=== PATIENT | female | born 1985 | race Caucasian/White ===

== ENCOUNTER 2019-04-12 14:11 | Emergency (ER) | payer OTHER ==
[~2019-04-12] VITALS: Ht 165.1 cm; Wt 90.7 kg
--- NOTE | ~2019-04-12 | EKG ---
[place], [place] ELECTROCARDIOGRAM REPORT NAME: MATTY MENDOZA UNIT #: [id number] ROOM: DOCTOR: EPIPHANY DRAFT REPORT BIRTHDATE: [birth year] [facility] Test Date: 2019-04-12 Test Time: 15:10:48 Pat Name: MATTY MENDOZA Department: Room: Gender: F Food Beverage Attendant: SS RESP : 1985 Requested By: RAJ ANDERSON DNP Order Number: [id number] Reading MD: Katie Veronica Measurements Intervals [place] Rate: 92 P: 37 IN: 158 QRS: 32 QRSD: 89 T: 7 QT: 349 QTc: 432 Interpretive Statements Sinus rhythm Left atrial enlargement Baseline wander in lead(s) V5 Electronically Signed On 04-13-2019 7:42:14 PST by Katie Veronica CM:EKGRPT:ELECTROCARDIOGRAM REPORT [id number] RAJ ANDERSON DNP EPIPHANY DRAFT REPORT RAJ ANDERSON DNP
[~2019-04-12 14:11] MED LIST: BACTRIM DS 8001 TA1 PO; BIRTH CONTROL1 EACH PO; FLEXERIL10 MG PO; HYDR25T PO; KEFLEX500 MG PO; MOTRIN800 MG PO; NKHM; PERCOCET 325 MG1 TA2 PO; PERCOCET 325 MG1 TA5 PO; PERCOCET 325 MG1 TA6 PO; PHENERGAN25 M1 PO; PNV-DHA1 SGL PO; ULTRAM50 MG PO; VASOTEC5 MG PO; VICODIN 5/500 505 MG PO; ZITHROMAX Z PA250 MG PO
[2019-04-12 15:11] LABS: BASO # 0.1 10*3/uL (0.0-0.1); BASO % 0.4 % (0.0-1.0); EOS # 0.2 10*3/uL (0.0-0.4); EOS % 1.3 % (1.0-4.0); HEMATOCRIT 44.9 % (37.0-47.0); HEMOGLOBIN 14.2 g/dl (12.0-16.0); LYMPH # 1.9 10*3/uL (1.3-4.4); LYMPH % 13.5 % (27.0-41.0); MEAN CELL VOLUME 83.1 fl (81.0-99.0); MEAN CORPUSCULAR HGB 26.3 pg (27.0-31.0); MEAN CORPUSCULAR HGB CONC 31.6 g/dl (33.0-37.0); MEAN PLATELET VOLUME 10.8 fl (9.6-12.3); MONO # 0.7 10*3/uL (0.1-1.0); MONO % 4.9 % (3.0-9.0); NEUT # 11.1 10*3/uL (2.3-7.9); NEUT % 79.5 % (47.0-73.0); PLATELET COUNT AUTOMATED 280 10*3/uL (130-400); RED CELL DISTRI WIDTH 14.1 % (0-14.5)
[2019-04-12 15:23] LABS: ACT PARTIAL THROMBO TIME 25.6 SECONDS (20.0-32.1); INTERNATIONAL NORM RATIO 0.9 (2.0-3.5)
[2019-04-12 15:46] LABS: ALBUMIN 3.8 gm/dl (3.1-4.5); ALKALINE PHOSPHATASE 134 U/L (45-117); BUN 8 mg/dl (7-24); CHLORIDE 101 mmol/L (98-107); CREATININE 1.02 mg/dL (0.55-1.02); LIPASE 90 U/L (73-393); POTASSIUM 3.6 mmol/L (3.5-5.1); SGOT/AST 25 IU/L (3-35); SGPT/ALT 46 U/L (12-78); SODIUM 137 mmol/L (136-145); TOTAL PROTEIN 7.8 gm/dL (6.4-8.2)
[2019-04-12 15:52] LABS: TROPONIN I < 0.015 ng/ml (<0.045)
[2019-04-12] MEDS ORDERED: ZANTAC 150150 MG PO (16:18)
[2019-04-12] MEDS ORDERED: PRILOSEC20 M1 PO (16:18)
== END 2019-04-12 16:32 | disposition home or self-care (01) ==
LOC: ED 14:11
PROVIDERS: Nurse Practitioner Family
DX: K29.70 Gastritis, unspecified, without bleeding (principal); K21.9 Gastro-esophageal reflux disease without esophagitis

== ENCOUNTER 2019-04-18 08:32 | Inpatient (IN) | payer OTHER ==
[~2019-04-18] VITALS: Ht 152.4 cm; Wt 90.7 kg
[~2019-04-18 08:32] MED LIST changes: +PRILOSEC20 M1 PO; +ZANTAC 150150 MG PO
[2019-04-18 08:36] VITALS: BP 136/75
[2019-04-18 08:58] LABS: BILIRUBIN NEGATIVE (NEGATIVE); BLOOD NEGATIVE (NEGATIVE); CLARITY SL CLOUDY (CLEAR); COLOR YELLOW (YELLOW); GLUCOSE NEGATIVE (NEGATIVE); KETONE NEGATIVE (NEGATIVE); LEUKO ESTERASE NEGATIVE (NEGATIVE); NITRITE NEGATIVE (NEGATIVE); PH 7.5 (5.0-9.0); SPECIFIC GRAVITY <= 1.005 (1.005-1.030); UROBILINOGEN 0.2 E.U./dl (0.2-1.0)
[2019-04-18 09:09] LABS: BACTERIA 1+
[2019-04-18 09:18] LABS: BASO % 0.2 % (0.0-1.0); EOS # 0.2 10*3/uL (0.0-0.4); HEMATOCRIT 44.1 % (37.0-47.0); HEMOGLOBIN 14.1 g/dl (12.0-16.0); LYMPH # 1.4 10*3/uL (1.3-4.4); LYMPH % 7.9 % (27.0-41.0); MEAN CORPUSCULAR HGB 26.2 pg (27.0-31.0); MONO # 1.2 10*3/uL (0.1-1.0); MONO % 6.7 % (3.0-9.0); NEUT % 83.8 % (47.0-73.0); PLATELET COUNT AUTOMATED 254 10*3/uL (130-400); RED BLOOD COUNT 5.38 10*6/uL (4.10-5.10); RED CELL DISTRI WIDTH 14.3 % (0-14.5); WHITE BLOOD COUNT 17.9 10*3/uL (4.8-10.8)
[2019-04-18 09:38] LABS: ALBUMIN 3.2 gm/dl (3.1-4.5); BUN 9 mg/dl (7-24); CHLORIDE 102 mmol/L (98-107); CREATININE 0.92 mg/dL (0.55-1.02); LIPASE 78 U/L (73-393); POTASSIUM 3.6 mmol/L (3.5-5.1); SGOT/AST 33 IU/L (3-35); SGPT/ALT 41 U/L (12-78); SODIUM 135 mmol/L (136-145); TOTAL PROTEIN 7.6 gm/dL (6.4-8.2)
[2019-04-18 09:39] LABS: ALKALINE PHOSPHATASE 164 U/L (45-117)
[2019-04-18 09:40] LABS: BETA-HCG, QUANT < 1.0 mIU/mL (1-3)
[2019-04-18 09:41] VITALS: BP 138/94
[2019-04-18 10:30] VITALS: BP 138/79
--- NOTE | 2019-04-18 11:25 | NUR ---
PT COMPLAINS OF INCREASED ABDOMINAL PAIN AND NAUSEA. DR DOZIER MADE AWARE. NEW MEDICATION ORDERS RECEIVED. PT REMAINS ALERT. JIMI JETER
[2019-04-18 14:09] VITALS: BP 150/94
--- NOTE | 2019-04-18 14:30 | NUR ---
Time: 1429 A 34 year old FEMALE admitted to under services of ZENIA MONSALVE DO, Pt. arrived via bed from ER. Chief complaint: ABDOMINAL PAIN, BILATERAL LOWER QUADRANTS. LOVE GUPTA
--- NOTE | 2019-04-18 14:51 | NUR ---
DR. PABLO NOTIFIED OF PATIENT C/O NAUSEA.
--- NOTE | 2019-04-18 14:52 | NUR ---
DR. BARRY NOTIFIED OF CONSULT.
--- NOTE | 2019-04-18 14:52 | NUR ---
DR. PABLO INFORMED OF SWITCH TO DR. 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
[2019-04-18 14:53] VITALS: BP 145/96
--- NOTE | 2019-04-18 15:30 | NUR ---
PRN MORPHINE INEFFECTIVE PER PT. DR. PABLO INFORMED.
--- NOTE | 2019-04-18 15:37 | NUR ---
PT MEDICATED WITH PRN DILAUDID FOR C/O BILATERAL LOWER QUAD ABD PAIN. PT RATES PAIN /10. WILL MONITOR.
[2019-04-18] MEDS ORDERED: ZOSYN 4/0.5 44.5 GM IV (17:42)
[2019-04-18 20:00] VITALS: BP 136/73
--- NOTE | 2019-04-18 20:57 | NUR ---
PATIENT LEFT HOSPITAL AT THIS TIME WITH [facility] TO BE TRANSFERRED TO [facility] IN [place]. JORGE GRIMM IMFUSING.
--- NOTE | 2019-04-18 21:00 | NUR ---
SISTER VARUN NOTIFIED THAT PATIENT LEFT AT THIS TIME.
== END 2019-04-18 20:57 | disposition short-term general hospital (02) | DRG 720 ==
LOC: ED 08:32 → 4E 13:39 → EDHOLD 13:39 → 4E 14:30
PROVIDERS: Emergency Medicine; ADMIT Internal Medicine
DX: A41.9 Sepsis, unspecified organism (principal); R74.8 Abnormal levels of other serum enzymes; K57.92 Diverticulitis of intestine, part unspecified, without perforation or abscess without bleeding; R79.82 Elevated C-reactive protein (CRP); I10 Essential (primary) hypertension; E87.1 Hypo-osmolality and hyponatremia; K21.9 Gastro-esophageal reflux disease without esophagitis; N13.30 Unspecified hydronephrosis; Z82.49 Family history of ischemic heart disease and other diseases of the circulatory system; Z83.79 Family history of other diseases of the digestive system; Z90.49 Acquired absence of other specified parts of digestive tract; Z79.899 Other long term (current) drug therapy; K57.20 Diverticulitis of large intestine with perforation and abscess without bleeding